=== PATIENT | female | born 1985 | race Caucasian/White ===

== ENCOUNTER 2017-10-06 06:30 | Outpatient (CLI) | END 2017-10-06 08:51 | disposition home or self-care (01) ==

== ENCOUNTER 2017-12-26 22:50 | Inpatient (IN) | END 2017-12-29 14:20 | disposition home or self-care (01) | DRG 788 ==

== ENCOUNTER 2018-02-24 15:11 | Day surgery (SDC) | END 2018-02-24 20:17 | disposition home or self-care (01) ==